=== PATIENT | male | born 1980 | race Caucasian/White ===

== ENCOUNTER 2020-06-16 14:58 | Outpatient (RCR) | payer MEDICARE, OTHER, MEDICAID, SELFPAY ==
--- NOTE | 2020-06-16 16:20 | PTOPEVAL ---
Thank you for referring Holland Vale to [facility].? The patient is scheduled to be seen for therapy? __3__x/week for 12 visits. Please review, sign, date and return this plan of care DANIEL. I agree with and certify that the following plan of care is medically necessary. Referring Physician Date Admitting Provider: Attending Provider: Errol Clark MD Referring Provider: *PT Outpatient Evaluation Start: 06/16/20 15:07 Freq: Status: Active Protocol: Document 06/16/20 15:07 TERESA (Rec: 06/16/20 16:20 TERESA [email or web address]) Therapy Assessment Status Assessment Status Assessment Status Evaluation Evaluation Information Problem Diagnosis weakness, MS Onset 09/26/12 Subjective Information Pt. reports that he was Query Text:As Reported By Patient/ diagnosed with primary Family progressive MS in 2018. He states that he has recently noticed a more sudden decline in regards to endurance and leg strength. He states that he also noted increase in general back and l.e. pain. He states that he has noticed that he has become more easily distracted. He states that he has hx of falls, but has not done so in a long time. He reports that fatigue and balance issues have led to him becoming more sedentary. He reports that the longest he is able to stand is 15 minutes. He reports that he would like to pariticpate in therapy in order to improve strength and endurance. Prior Level of Function Activity Level (Last 3 Months) Occupation disability Hand Dominance Right Activity of Daily Living Ability Independent Indoor/Home Mobility Independent Community Mobility Independent Stairs Ability Independent Functional Cognition (Planning, Shopping Independent , Taking Medications) Cooking Yes Cleaning Yes Laundry Yes Shopping Yes Driving No Pain Assessment Timing of Pain Assessment Timing of Pain Assessment Pre-Treatment Pain Scale Pain Scale Used Numeric (1 - 10) Self Report Pain Assessment
--- NOTE | 2020-07-09 14:26 | PCPTNOTE ---
07/09/20-pt cancelled appointment today, stating he was just too sore to move. -
== END 2020-07-17 10:40 | disposition home or self-care (01) ==
LOC: CHSPT 14:58
PROVIDERS: PCP Family Medicine; Visit Provider Family Medicine
DX: R26.9 Unspecified abnormalities of gait and mobility (principal)
CPT/HCPCS: 97110; 97112; 97161

== ENCOUNTER 2020-09-01 12:01 | Outpatient (CLI) | payer MEDICARE, SELFPAY ==
[2020-09-01 12:56] LABS: SARS-CoV-2 Ag Negative (Negative)
== END 2020-09-01 12:02 | disposition home or self-care (01) ==
LOC: CHSLAB 12:06
PROVIDERS: PCP Family Medicine; Visit Provider Family Medicine
DX: Z20.828 Contact with and (suspected) exposure to other viral communicable diseases (principal)
CPT/HCPCS: 87426

== ENCOUNTER 2020-10-01 12:27 | Outpatient (CLI) | payer MEDICARE, MEDICAID, SELFPAY ==
[2020-10-02 19:23] LABS: SARS-CoV-2 RNA PCR Negative
== END 2020-10-01 12:28 | disposition home or self-care (01) ==
LOC: CHSLAB 12:31
PROVIDERS: PCP Family Medicine; Visit Provider Family Medicine
DX: Z01.818 Encounter for other preprocedural examination (principal); Z20.822 Contact with and (suspected) exposure to COVID-19
CPT/HCPCS: C9803; U0003

== ENCOUNTER 2020-10-03 13:07 | Outpatient (CLI) | payer MEDICARE, MEDICAID, SELFPAY ==
[2020-10-04 19:31] LABS: SARS-CoV-2 RNA PCR Negative
== END 2020-10-03 13:08 | disposition home or self-care (01) ==
LOC: CHSLAB 13:12
PROVIDERS: PCP Family Medicine; Visit Provider Family Medicine
DX: Z01.818 Encounter for other preprocedural examination (principal); Z20.822 Contact with and (suspected) exposure to COVID-19
CPT/HCPCS: C9803; U0003

== ENCOUNTER 2021-05-21 11:24 | Outpatient (CLI) | payer MEDICARE, SELFPAY ==
[2021-05-21 12:27] LABS: SARS-CoV-2 Ag Negative (Negative)
== END 2021-05-21 11:25 | disposition home or self-care (01) ==
LOC: CHSLAB 11:26
PROVIDERS: PCP Family Medicine; Visit Provider Family Medicine
DX: R53.83 Other fatigue (principal); Z20.822 Contact with and (suspected) exposure to COVID-19
CPT/HCPCS: 87426; C9803

== ENCOUNTER 2022-04-12 10:37 | Emergency (ER) | payer OTHER, SELFPAY ==
--- NOTE | ~2022-04-12 | CT_ITS ---
EXAMINATION: CT diagnostic chest wo con DATE: 04/12/2022 12:58 INDICATION: Shortness of breath, chest heaviness today. History of tumor removed from chest in 1998; 06/20/2017 [facility] order sheet for 2 view chest radiograph indicates lipoma remove d from the right chest wall under the nipple. TECHNIQUE: Computed tomography (CT) of the chest was performed without intravenous contrast. Automate d exposure control and iterative reconstruction technique were employed. Exam dose: 636.11 mGy-cm to alexa exam DLP. COMPARISON: 06/20/2017 two-view chest FINDINGS: The lungs are clear of infiltrate or consolidation or mass lesion. Normal heart size. Some left anterior descending coronary artery calcification is noted. No pericardi al or pleural effusion. No thoracic aortic aneurysm. No hilar or mediastinal mass lesion or lymphadenopathy is detected. There is focal scarring/retraction and at the inferior lateral aspect of the right nipple, likely rel ated to the history of prior surgical resection of a lipoma. No abnormal soft tissue mass density is noted in this region. No chest wall mass lesion is evident. Very small sliding hiatal hernia. 11.7 x 8 mm left adrenal mass, likely a small adrenal adenoma. 1.4 cm left upper quadrant splenule. Normal splenic size. Included skeletal structures are unremarkable. No suspicious osteolytic or osteosclerotic lesions. IMPRESSION: Small scar or retraction of the right anterior chest wall inferolateral to the nipple, a n area of previously resected lipoma by clinical history Probable small left adrenal adenoma No pulmonary mass or infiltrate or hilar or mediastinal adenopathy Left anterior descending coronary artery calcification; normal heart size Reviewed, dictated and finalized at [facility]. Reviewed, dictated and finalized at [facility]. IMPRESSION: Small scar or retraction of the right anterior chest wall inferola teral to the nipple, an area of previously resected lipoma by clinical history Probable small left adrenal adenoma No pulmonary mass or infiltrate or hilar or mediastinal adenopathy Left anterior descending coronary artery calcification; normal heart size
[2022-04-12 10:37] VITALS: BP 158/105; PULSE 91; RESP 20; TEMP 37.1; O2SAT 99
--- NOTE | 2022-04-12 10:49 | ECG_ITS ---
Rate 77 MA 179 QRSd 97 QT 355 QTc 403 --[place]-- P 46 QRS 65 T 57 SINUS RHYTHM NORMAL ECG Electronically Signed On 04-12-2022 18:57:02 CDT by Tunde MICHELLE
[2022-04-12 11:19] LABS: Basophils Absolute Auto 0.08 K/mm3 (0.00-0.10); Basophils Percent Auto 0.9 % (0.0-1.0); Eosinophils Absolute Auto 0.26 K/mm3 (0.02-0.50); Eosinophils Percent Auto 2.8 % (1.0-6.0); Hematocrit 42.3 % (40.0-54.0); Hemoglobin 14.4 g/dL (14.0-18.0); Immature Granulocyte Absolute 0.06 K/mm3 (0.00-0.00); Immature Granulocyte Percent A 0.7 % (0.0-0.0); Lymphocytes Absolute Auto 2.43 K/mm3 (1.10-4.50); Lymphocytes Percent Auto 26.4 % (18.0-42.0); Mean Corpuscular Hemoglobin 28.9 pg (27.0-31.0); Mean Corpuscular Volume 84.9 fL (78.0-102.0); Mean Platelet Volume 9.8 fl (8.7-11.0); Monocytes Absolute Auto 0.83 K/mm3 (0.10-0.90); Neutrophils Absolute Auto 5.5 K/mm3 (1.7-7.2); Neutrophils Percent Auto 60.2 % (50.0-70.0); Platelet Count Result 308 K/mm3 (150-420); Red Blood Count 4.98 M/mm3 (4.70-6.10); Red Cell Distribution Width 12.6 % (11.6-14.4); White Blood Count 9.2 K/mm3 (4.8-10.8)
[2022-04-12] MEDS: ACETAMINOPHEN 325 MG TABLET 650 MG PO (11:30)
[2022-04-12] MEDS: ASPIRIN 325 MG ENTERIC TABLET PO (11:30)
[2022-04-12] MEDS: SODIUM CHLORIDE 0.9% IV 500 ML 999 ML IV CONT (11:32)
[2022-04-12] MEDS: NITROGLYCERIN SL 0.4 MG TABLET SUBLINGUAL (11:34)
[2022-04-12 11:37] VITALS: BP 151/111; PULSE 86; RESP 20; TEMP 37.1; O2SAT 99
[2022-04-12 11:38] LABS: Alanine Aminotransferase 44 U/L (16-63); Albumin Level 3.6 g/dL (3.4-5.0); Alkaline Phosphatase 146 U/L (46-116); Anion Gap 10 mmol/L (8-16); Aspartate Amino Transferase 16 U/L (15-37); Bilirubin,Total 0.2 mg/dL (0.00-1.00); Blood Urea Nitrogen 10 mg/dL (7-18); Calcium 8.8 mg/dL (8.5-10.1); Carbon Dioxide 23 mmol/L (21-32); Chloride 105 mmol/L (98-108); Estimated CRCL calculation 108 ml/min; Estimated Glomerular Filt Rate > 60; Ethanol < 3 mg/dL (0-6); Glucose 140 mg/dL (70-99); Lactic Acid Reflex 2.3 mmol/L (0.4-2.0); Osmolality Calculated 287 mOsm/kg (285-295); Potassium 3.6 mmol/L (3.5-5.1); Sodium 138 mmol/L (136-145); Total Protein 7.4 g/dL (6.4-8.2); Troponin I 46.7 ng/L (0.00-60.4)
[2022-04-12 12:01] LABS: Influenza A QL RT-PCR Negative (Negative); Influenza B QL RT-PCR Negative (Negative); SARS-CoV-2 RNA PCR Negative (Negative)
[2022-04-12] MEDS: SODIUM CHLORIDE 0.9% IV 1,000 ML 999 ML IV CONT (12:10)
[2022-04-12] MEDS: cloNIDine HCL 0.2 MG TABLET PO (12:11)
--- NOTE | 2022-04-12 12:28 | ED.CHESTPAIN ---
HPI - Chest Pain General Chief Complaint: Chest Pain Stated Complaint: chest pains,sob Time Seen by Provider: 04/12/22 10:41 Source: patient and RN notes reviewed Mode of arrival: wheelchair Limitations: no limitations History of Present Illness complaint: chest pain Onset (ago): hour(s) (2) Timing of current episode: constant Prior episodes: No Onset: during rest Pain location: substernal Pain radiation: back Pain scale (0-10): 3 Quality: heaviness and dull Relieving factors: nothing Exacerbating factors: nothing Associated symptoms: nausea Treatment prior to arrival: none Risk Factors Coronary artery disease risk factors: family history of CAD before age 50 Related Data Home Medications Medication Instructions Recorded Confirmed amantadine HCl 100 mg capsule 100 mg PO DAILY 04/12/22 04/12/22 clonazepam 0.5 mg tablet 0.5 mg PO DIRECTED 04/12/22 04/12/22 escitalopram oxalate 20 mg tablet 20 mg PO DAILY 04/12/22 04/12/22 gabapentin 300 mg capsule 300 mg PO TID 04/12/22 04/12/22 gabapentin 600 mg tablet 600 mg PO TID 04/12/22 04/12/22 tizanidine 2 mg tablet 2 mg PO DAILY 04/12/22 04/12/22 Allergies Allergy/AdvReac Type Severity Reaction Status Date / Time No Known Allergies Allergy Verified 04/12/22 11:00 Review of Systems Review of Systems: All systems reviewed & are unremarkable except as noted in HPI and below Constitutional: Constitutional: Reports no additional constitutional complaints Eyes: Eyes: Reports no additional eye complaints ENT: Reports system reviewed and no additional complaints, except as documented Cardiovascular: Cardiovascular: Reports chest pain Respiratory: Respiratory: Reports no additional respiratory complaints Gastrointestinal: Gastrointestinal: Reports no additional gastrointestinal complaints Musculoskeletal: Musculoskeletal: Reports no additional musculoskeletal complaints Integumentary/Breasts: Skin/Breast: Reports system reviewed and no additional complaints, except as docu Neurologic: Reports system reviewed and no additional complaints, except as documented Psychiatric: Psychiatric: Reports no additional psychiatric complaints Endocrine: Endocrine: Reports no additional endocrine complaints Hematologic/Lymphatic: Hematologic/Lymphatic: Reports no additional hematologic/lymphatic complaints Allergic/Immunologic: Allergic/Immunologic: Reports no additional allergic/immunologic complaints PMFSH Past Medical History Medical History Chest pain at rest Multiple sclerosis Exam Const: General: healthy appearing and no acute distress Nutritional Appearance: well nourished Orientation/consciousness: patient oriented x3 Limitations: no limitations HENMT: Head: normal to inspection Ears: external ears normal, TM's normal bilaterally and EAC's normal General nose exam: Normal external nose present and Normal nares present Face and sinus: normal facial exam and sinuses nontender Mouth: Yes Normal oral and palatal mucosa present and Yes moist mucous membranes Teeth and gingiva: dentition normal Throat: posterior oropharynx normal Eyes: Conjunctivae: conjunctivae normal Pupils: Equal, round and reactive pupils present EOM: EOMs intact bilaterally Neck: Neck: normal visual inspection, no lymphadenopathy and no meningeal signs Chest: Chest palpation & inspection: normal inspection of the chest and tenderness (minimal of mid to upper sternum) Resp: Effort & Inspection: normal respiratory effort Auscultation: clear to auscultation bilaterally Cardio: Rate: regular rate Rhythm: regular rhythm GI: GI Palp: Yes Soft to palpation and No Tenderness to palpation present (GI) Auscultation: normal bowel sounds : General: Yes bladder normal to palpation and Yes no CVA tenderness Back/Spine/Pelvis: Back: no CVA tenderness Skin: General skin exam: normal color Rashes: no rashes Wounds: no wounds Neuro
[2022-04-12 12:39] VITALS: BP 134/84; PULSE 81; RESP 20; TEMP 37.1; O2SAT 94
[2022-04-12 12:47] VITALS: BP 165/92; PULSE 83; RESP 20; TEMP 36.9; O2SAT 98
[2022-04-12 12:59] LABS: Amphetamine Screen Urine Positive (Negative); Barbiturate Screen Urine Negative (Negative); Benzodiazepines Screen Urine Negative (Negative); Cannabinoid Screen Urine Positive (Negative); Cocaine Screen Urine Negative (Negative); Methadone Screen Urine Negative (Negative); Opiate Screen Urine Negative (Negative); Phencyclidine Screen Urine Negative (Negative)
[2022-04-12] MEDS: KETOROLAC (*BKC) 60 MG/2 ML VIAL IM (13:25)
--- NOTE | 2022-04-12 13:31 | PC.NURSE ---
pt resting per cot. denies chest pain at this time. awaiting ct scan report.
[2022-04-12 13:38] LABS: Troponin I 397.5 ng/L (0.00-60.4)
--- NOTE | 2022-04-12 13:49 | ECG_ITS ---
Rate 83 UT 174 QRSd 97 QT 366 QTc 431 --[place]-- P 53 QRS 78 T [address] ELEVATION IN ANTEROLAT/INF LEADS- PROBABLY EARLY REPOLARIZATION BASELINE WANDER- I, II, III, AVR BORDERLINE ECG Electronically Signed On 04-13-2022 10:15:41 CDT by Tunde Jefferson D.O. COMPARED TO ECG 04/12/2022 10:53:00 ST (T WAVE) DEVIATION NOW PRESENT MTDD
[2022-04-12 14:15] LABS: Reflex Lactic Acid Yes or No Add Lactic
[2022-04-12 14:16] LABS: NT Pro B Type Natriuretic Pept 20 pg/mL (0-125)
[2022-04-12] MEDS: ENOXAPARIN 100 MG/ML SYRINGE (14:31)
[2022-04-12 14:59] LABS: Lactic Acid 1.7 mmol/L (0.4-2.0)
[2022-04-12 15:23] VITALS: BP 137/86; PULSE 79; RESP 20; TEMP 37.2; O2SAT 99
== END 2022-04-12 16:06 | disposition short-term general hospital (02) ==
PROVIDERS: Emergency Provider Emergency Medicine; PCP Family Medicine
DX: I21.4 Non-ST elevation (NSTEMI) myocardial infarction (principal); R07.9 Chest pain, unspecified; Z20.822 Contact with and (suspected) exposure to COVID-19; R06.02 Shortness of breath; Z79.899 Other long term (current) drug therapy
CPT/HCPCS: 36415; 71250; 80053; 80307; 83605; 83880; 84484; 85025; 87081; 87502; 87880; 93005; 96360; 96361; 96372; 99285; A9270; C9803; J1650; J1885; J7030; J7040; U0003; U0005

== ENCOUNTER 2022-04-12 17:19 | Inpatient (IN) | payer OTHER, SELFPAY ==
[2022-04-12] VITALS (8 sets, daily range): BP systolic 134–160; BP diastolic 80–109; PULSE 84–104; RESP 13–21; TEMP 36.5–36.9; O2SAT 97–100; BMI 29.2
--- NOTE | 2022-04-12 16:34 | PC.NURSE ---
This patient, Holland Vale, was admitted to IMU Room 232-01. Patient/family oriented to hospital policies and general routines including ID bracelet, bed and alarms, visiting hours, pain management, procedures, bathroom and other care routines, personal items, smoking policy, room service/diet, and visiting hours. Information on how to activate the Rapid Response Team has been discussed. Patient/Family are encouraged to report perceived risks to care and to ask questions if they do not understand what they are told or what they should do.
--- NOTE | 2022-04-12 17:22 | ECG_ITS ---
Rate 78 SC 173 QRSd 96 QT 359 QTc 409 --[place]-- P 43 QRS 66 T [address] ELEVATION IN ANTEROLAT/INF LEADS, PROBABLY EARLY REPOLARIZATION BORDERLINE ECG Electronically Signed On 04-13-2022 7:46:09 CDT by Tunde MICHELLE
--- NOTE | 2022-04-12 18:30 | PM.IMHP ---
H&P: HPI History of Present Illness Date/Time: 04/12/22 18:30 Chief Complaint: Chest pain, elevated troponin. Narrative: This is a 41-year-old male with multiple sclerosis and anxiety who is being directly admitted to the IMU from the ED at [facility] for evaluation of chest pain and elevated troponin. He presented to their facility this morning from home for evaluation of chest pain that began around 08:30. He did not sleep well last night so he watched and educational video regarding stem cell transplants for patients with multiple sclerosis. He was hopeful that these advances in medicine could help him however he was disappointed with what he learned in the videos and he admits that he got upset and ?ate my feelings. At around 08:30 he developed a heaviness sensation in the substernal chest like a bowling ball is sitting there. The pain seemed to radiate somewhat through to the back and he was also feeling a little short of breath and lightheaded with hot flashes and sweats. EKG done on arrival to the ED showed subtle ST elevation which seemed to be more consistent with early repolarization although his baseline troponin was marginally elevated. He was given a therapeutic dose of Lovenox as well as aspirin 324 mg p.o. and transfer was initiated to [place] for further evaluation and consultation with the splicer apprentice. At the time of my evaluation he continues to have mild chest heaviness rated 2/10. A repeat EKG did show subtle ST elevation in the inferior leads at which time the flight communications officer was consulted and he is now awaiting urgent cardiac catheterization. I went to re-evaluate the patient after his repeat EKG at which time he admitted to smoking methamphetamine within the last 24 hours. This was apparently the 1st time he had done meth and he said he was trying it to see if it would help his unrelenting fatigue. He has no known history of coronary artery disease but has a strong family history with his mother having her 1st RI at age 42 and a bypass at age 51. Review of Systems Review of Systems: Twelve systems were reviewed. He has good days and bad days regarding his multiple sclerosis. He seems to be quite fatigued frequently. He has not had any recent falls. No syncope or presyncope. No recent cold or flu symptoms. No nausea, vomiting, or diarrhea. He denies cough. No palpitations, pleuritic pain, orthopnea, paroxysmal nocturnal dyspnea, or edema. No history of venous thromboembolism. Except as documented, all other systems were reviewed and are negative. [facility] Past Medical History Medical History (Updated 04/13/22 @ 00:00 by Raymon Harry) Anxiety Multiple sclerosis Nicotine use Surgical History Surgical History Status post excision of lipoma Family History Family History (Updated 04/12/22 @ 21:31 by Barb Lama PA-C) Mother Acute myocardial infarction, Onset Age: 42 Stents at age 42, bypass at age 52. Coronary artery disease Multiple sclerosis Social History Social History Social History: Surrogate medical decision maker: Rose Mary Vale, mother. Code status: Full code. Smoking packs per day: 0.25 Smoking cigarettes per day: 5.0 Smoking status: Current every day smoker Alcohol intake: never Substance use: current Substance use type: marijuana Living arrangements: with family Spiritual care concerns: No Meds Home Medications and Allergies Home Medications Medication Instructions Recorded Confirmed Type clonazepam 0.5 mg tablet 0.5 mg PO DIRECTED 04/12/22 04/12/22 History escitalopram oxalate 20 mg tablet 20 mg PO DAILY 04/12/22 04/12/22 History gabapentin 300 mg capsule 300 mg PO TID 04/12/22 04/12/22 History gabapentin 600 mg tablet 600 mg PO TID 04/12/22 04/12/22 History tizanidine 2 mg tablet 2 mg PO DAILY 04/12/22 04/12/22 Sc
[2022-04-12] MEDS: SODIUM CHLORIDE 0.9% IV 1,000 ML 30 ML IV CONT (20:11)
--- NOTE | 2022-04-12 20:32 | PC.NURSE ---
Addendum entered by Starla Valdez RN 04/12/22 20:45: The decision concerning if patient is a STEMI and a STEMI needs to be activated. Dr. Dowling called back and stated to activate the STEMI and Dr. Cosme was on his way in. STEMI activated per hospital protocol. Original Note: 1930 Patient c/o 5/10 chest pressure. States it feels like a bowling ball was dropped on his chest and radiating to his back. EKG obtained and shown to EZEKIEL Melton. She stated to call cardiology and make them aware of EKG changes. Spoke with Dr. Dowling and made him aware of patient and current EKG. EKGs sent to Dr. Dowling. Dr. Dowling getting in touch with Dr. Cosme and will let me know what
--- NOTE | 2022-04-12 20:38 | PC.NURSE ---
Patient to prosthetics lab technician. Report given to VICTOR MANUEL Del Cid.
--- NOTE | 2022-04-12 20:39 | PM.CNCAR ---
Assessment and Plan Assessment and plan (1) Elevated troponin: Code(s): R77.8 - Other specified abnormalities of plasma proteins Status: Acute (2) Chest pain: Code(s): R07.9 - Chest pain, unspecified Status: Acute (3) Nicotine use: Code(s): Z72.0 - Tobacco use Status: Acute Additional Plan - chest pain elevated troponins, possible ST elevations inferior leads - amphetamine use, tobacco use, marijuana. - multiple sclerosis - anxiety Risks and benefits of cardiac catheterization discussed with the patient he agrees to proceed. Although he has used methamphetamine but we cannot exclude coronary artery disease given his smoking history. And given his family history History of Present Illness History of Present Illness Consult date/time: Date of ahofknu28/18/22 20:39 Requesting physician: Barb Lama PA-C Consult reason: chest pain and Other ( possible STEMI) Reason For Visit: Chest Pain/ Elevated Troponin Narrative: this is 41-year-old patient with past history of tobacco use, multiple sclerosis, anxiety who presents here to the hospital chest pain that started 830 this morning. He was transferred directly from the emergency room of [facility] as a direct admit to the IMU. this evening patient was having more chest pain and review the EKG which normalized and reviewed myself shows ST elevations in the inferior leads. patient states that he was feeling very anxious and smoked meth for the 1st time. Initial troponin at [facility] shows troponin 46 the 397. Troponin here was 2.33 urine drug screen positive for cannabinoid and amphetamines. COVID negative. CT of the chest shows calcification of the LAD Review of Systems Constitutional: Constitutional: Denies chills, Denies fever(s) and Denies poor appetite Eyes: Eyes: Denies eye discharge, Denies loss of vision, Denies eye pain and Denies photophobia ENT: Denies dizziness, Denies epistaxis, Denies nasal congestion and Denies sore throat Cardiovascular: Cardiovascular: Reports chest pain, Denies syncope, Denies pedal edema, Denies leg edema, Denies palpitations, Denies dyspnea, Denies dyspnea on exertion and Denies orthopnea Respiratory: Respiratory: Denies cough, Denies dyspnea, Denies dyspnea on exertion and Denies wheezing Gastrointestinal: Gastrointestinal: Denies abdominal pain, Denies diarrhea, Denies nausea and Denies vomiting Genitourinary: Genitourinary: Denies hematuria, Denies genital lesions and Denies dysuria Musculoskeletal: Musculoskeletal: Denies arthralgias, Denies joint swelling and Denies numbness Integumentary/Breasts: Skin/Breast: Denies pruritus and Denies rash Neurologic: Denies dizziness and Denies syncope Psychiatric: Psychiatric: Reports anxiety and Denies depression Endocrine: Endocrine: Denies cold intolerance, Denies heat intolerance and Denies palpitations Hematologic/Lymphatic: Hematologic/Lymphatic: Denies easy bleeding and Denies easy bruising Allergic/Immunologic: Allergic/Immunologic: Denies urticaria and Denies wheezing PENDING SALE TO [facility] Past Medical History Medical History (Updated 04/12/22 @ 21:44 by Barb Lama PA-C) Anxiety Multiple sclerosis Nicotine use Surgical History Surgical History Status post excision of lipoma Family History Family History (Updated 04/12/22 @ 21:31 by Barb Lama PA-C) Mother Acute myocardial infarction, Onset Age: 42 Stents at age 42, bypass at age 52. Coronary artery disease Multiple sclerosis Social History Social History Social History: Surrogate medical decision maker: Rose Mary Vale, mother. Code status: Full code. Smoking packs per day: 0.25 Smoking cigarettes per day: 5.0 Smoking status: Current every day smoker Alcohol intake: never Substance use: current Substance use type: milly
[2022-04-12 20:50] LABS: Basophils Absolute Auto 0.1 K/mm3 (0.0-0.1); Basophils Percent Auto 0.4 % (0.2-1.2); Eosinophils Absolute Auto 0.2 K/mm3 (0-0.3); Eosinophils Percent Auto 1.6 % (0-4.4); Hematocrit 40.7 % (42.0-52.0); Hemoglobin 13.8 g/dL (14.0-18.0); Immature Granulocyte Absolute 0.06 K/mm3 (0.00-0.031); Immature Granulocyte Percent A 0.5 % (0-0.5); Mean Corpuscular HGB Conc 33.9 g/dl (32-36); Mean Corpuscular Hemoglobin 28.9 pg (26-34); Mean Corpuscular Volume 85.1 fl (80-100); Mean Platelet Volume 10.1 fl (7.4-10.4); Monocytes Absolute Auto 0.9 K/mm3 (0.1-0.6); Monocytes Percent Auto 7.3 % (2.6-8.5); Neutrophils Absolute Auto 8.6 K/mm3 (1.3-6.7); Neutrophils Percent Auto 69.2 % (45.5-73.1); Platelet Count Result 268 k/mm3 (150-375); Red Blood Count 4.78 M/mm3 (4.6-6.20); Red Cell Distribution Width 12.9 % (11.5-14.5); White Blood Count 12.4 K/mm3 (4.5-10.0)
--- NOTE | 2022-04-12 20:56 | WPDCARDPROC ---
Cardiac Cath Procedure Note Date of procedure:: 04/12/22 Performing physician:: Nalini Cosme MD Indication:: possible inferior ST-elevation Brief clinical history:: 41-year-old patient with history of anxiety, multiple sclerosis and tobacco use who presents to hospital with chest pain that started at 8:30 a.m. this. Troponins went up and therefore transferred from [place] [facility]. he had more chest pain this afternoon and EKG shows subtle ST elevation in inferior leads and troponin 2.3. Urine drug screen positive for methamphetamine. also marijuana. Procedure Procedure performed:: 1-Moderate sedation that started at 849p.m.and ended at 10:28 p.m. patient 99 minutes using 8mg of Versed and 200mg fentanyl. The registered nurse was viktoria marvin. 2-Selective left and right coronary angiogram. 3-Left heart catheterization with measurement of LVEDP and measurement of gradient across aortic valve. 4- LV angiogram. 5- drug-eluting stent Xience 3.25x23 covering proximal and midportion of ramus intermedius. 6- deployment of a drug-eluting stent Xience 2.25 x 28 covering 2nd branch of OM1. 7-Right common femoral arterial angiogram. 8-Deployment of 6 Singaporean Angio-Seal. Sedation/Medication given:: Moderate sedation. Access site:: Right common femoral artery. Estimated blood loss:: 10cc Procedure note:: After informed consent patient was brought in to crime laboratory analyst with the was draped and prepped in usual manner. Moderate sedation was given and the right groin was infiltrated using 1% lidocaine. 6French sheath was obtained using micropuncture needle and the modified Seldinger technique. Selective left coronary angiogram was done using JL4 catheter with the tip of the catheter placed in the left main coronary artery. intracoronary nitroglycerin 300 mcg and then 200 mcg given with no change in the left coronary arterial angiogram findings. Selective right coronary angiogram was done using JR4 catheter with the tip of the catheter placed to the right coronary artery. After that 5 Singaporean pigtail catheter was advanced across the aortic valve into the left ventricle with measurement of LVEDP and measurement of gradient across aortic valve. LV angiogram was done as well. Right common femoral arterial angiogram was done. After that guide catheter CLS 3.5 was advanced engaging the left main. Coronary luge wire was advanced to distal ramus. Balloon angioplasty of proximal and midportion of the ramus was done using 3 x 15 balloon with initial inflation under nominal pressure for 25 seconds and then a 2nd inflation corresponding to size 3.25 mm for another 25 seconds and then deployed a drug-eluting stent Xience aleksandr point 3.25 x 23 under nominal pressure for 25 seconds. Post dilatation of the midportion of the stent done using 3.5x15 noncompliant balloon with under nominal pressure for 25 seconds. after that we took another luge wire and failed to wire the OM. Then we took a Sizing Machine Operator 150 and we wired the 2nd branch of the OM1. Balloon angioplasty done using 2 x 15 balloon under nominal pressure for 25 seconds. Then we inflated it at another time under 10 atmospheres for 25 seconds. Then we took Xience 3.25 x 33 was too long and we took a shorter Xience stent 2.25 x 28 deployed it in the 2nd branch of the covering the proximal part the mid part pressure for 25 seconds. Findings:: 1- left coronary artery is a large artery that divides into large LAD, large circumflex artery large ramus. Left main is free of disease 2- left anterior descending artery is a large artery that runs and wraps around the apex. minimal irregularities. Midportion size diagonal significant disease. 3- leftcircumflex artery is a large artery and. Midportion OM1 takes off. shortly after that the OM1 divides into 2 branches. The 1st branch is totally occluded with LI flow 0 in the midportion and artery appears to be tiny. The 2nd branch has high-grade stenosis 90% c
[2022-04-12 21:00] LABS: INR 1.1; Prothrombin Time 13.8 Seconds (11.1-14.7)
[2022-04-12 21:16] LABS: Anion Gap 4 mmol/L (8-16); Blood Urea Nitrogen 8 mg/dL (9-20); Calcium 8.6 mg/dL (8.4-10.2); Carbon Dioxide 26 mmol/L (22-30); Chloride 107 mmol/L (98-107); Cholesterol 186 mg/dL (0-200); Estimated CRCL calculation 138 ml/min; Estimated Glomerular Filt Rate > 60; Glucose 142 mg/dL (65-110); HDL Direct 27 mg/dL; Potassium 3.6 mmol/L (3.4-5.0); Sodium 137 mmol/L (137-145); Triglycerides 370 mg/dL (<150)
[2022-04-12 21:24] LABS: LDL Cholesterol Direct 95 mg/dL
[2022-04-12 22:10] LABS: Hemoglobin A1C 5.9 % (<5.7)
--- NOTE | 2022-04-12 22:47 | ECG_ITS ---
Measurements Intervals [place] Rate: 89 P: 53 VT: 167 QRS: 75 QRSD: 96 T: 62 QT: 348 QTc: 423 Interpretive Statements SINUS RHYTHM INCOMPLETE RIGHT BUNDLE BRANCH BLOCK SUBTLE ST ELEVATION IN INFERIOR LEADS- CONSIDER ACUTE INJURY BASELINE ARTIFACT- II, III, AVF ABNORMAL ECG Electronically Signed On 04-13-2022 10:18:26 CDT by Tunde Jefferson D.O.
[2022-04-12] MEDS: GABAPENTIN 300 MG CAPSULE 900 MG PO (23:31)
[2022-04-13] VITALS (20 sets, daily range): BP systolic 113–154; BP diastolic 72–104; PULSE 78–102; RESP 10–19; TEMP 36.9–37.1; O2SAT 96–99
[2022-04-13] MEDS: MORPHINE SULFATE (*CRX) 2 MG/ML INJ IV PUSH (00:42)
[2022-04-13] MEDS: SODIUM CHLORIDE 0.9% IV 1,000 ML 125 ML IV CONT (00:46)
[2022-04-13] MEDS: ACETAMINOPHEN 325 MG TABLET 650 MG PO ×2 (00:49→18:22)
--- NOTE | 2022-04-13 01:40 | PCRCNOTE ---
04/13/2022 @ 2130. Patient arrived to ICU from clinical lab scientist. ApneaLink will be done tomorrow night.
--- NOTE | 2022-04-13 04:23 | PC.NURSE ---
This patient, Holland Vale, was received from bed laborer on 04/12/22 at 2300. Patient/family oriented to unit policies and routines
[2022-04-13 04:33] LABS: Hematocrit 40.3 % (42.0-52.0); Hemoglobin 13.9 g/dL (14.0-18.0); Mean Corpuscular HGB Conc 34.5 g/dl (32-36); Mean Corpuscular Hemoglobin 29.2 pg (26-34); Mean Corpuscular Volume 84.7 fl (80-100); Mean Platelet Volume 9.8 fl (7.4-10.4); Platelet Count Result 259 k/mm3 (150-375); Red Blood Count 4.76 M/mm3 (4.6-6.20)
[2022-04-13 04:53] LABS: LDL Cholesterol Direct 89 mg/dL
[2022-04-13 05:01] LABS: Anion Gap 4 mmol/L (8-16); Blood Urea Nitrogen 10 mg/dL (9-20); Calcium 8.6 mg/dL (8.4-10.2); Carbon Dioxide 25 mmol/L (22-30); Chloride 110 mmol/L (98-107); Cholesterol 214 mg/dL (0-200); Estimated CRCL calculation 122 ml/min; Estimated Glomerular Filt Rate > 60; Glucose 118 mg/dL (65-110); Magnesium 1.9 mg/dL (1.6-2.3); Potassium 3.8 mmol/L (3.4-5.0); Sodium 139 mmol/L (137-145)
[2022-04-13 05:13] LABS: Triglycerides 636 mg/dL (<150)
--- NOTE | 2022-04-13 07:00 | ECG_ITS ---
Measurements Intervals [place] Rate: 81 P: 46 GA: 157 QRS: 64 QRSD: 98 T: 65 QT: 362 QTc: 422 Interpretive Statements SINUS RHYTHM WITH SINUS ARRHYTHMIA EARLY PRECORDIAL R/S TRANSITION BORDERLINE ECG Electronically Signed On 04-13-2022 10:18:49 CDT by Tunde Jefferson D.O.
--- NOTE | 2022-04-13 08:09 | WPDCNINT ---
Assessment and Plan Assessment and plan (1) ST elevation [place] (STEMI): Code(s): I21.3 - ST elevation (STEMI) myocardial infarction of unspecified site Status: Acute Assessment and Plan: Patient presented to an outside hospital on 04/12/2022 with complains of chest pain, urine drug screen was positive for cannabinoids and amphetamines, he stated that he smoked methamphetamine only once on the day of admission and that he does not use methamphetamine at all -status post PTCA/PCI with FRANCIE x1 to large ramus intermedius and FRANCIE x1 to 2nd branch of the OM 1. A small totally occluded 1st branch of OM 1 was not intervened upon as the tunnel kiln operator thought that the outcome of the patient will not change -continue aspirin, Brilinta - beta-teofilo and statin per Cardiology -day camp counselor patient on avoidance of methamphetamine and cannabinoids -aggressive risk factor modification for CAD -cardiology following the patient (2) Nicotine use: Code(s): Z72.0 - Tobacco use Status: Acute Assessment and Plan: Consult patient for cessation of smoking to which she is agreeable (3) Multiple sclerosis: Code(s): G35 - Multiple sclerosis Status: Acute Assessment and Plan: No active issues at this time Plan Beta-teofilo and statin per Cardiology Additional Plan Discussed with patient updated him with his labs and radiology reports. Code status: Full code Critical care time spent: 42 minutes This dictation may have been done utilizing a voice recognition system. Attempts have been made to correct errors. However, there may be uncorrected grammatical, spelling, and recognition errors present. Due to a high probability of clinically significant, life threatening deterioration, the patient required my highest level of preparedness to intervene emergently and I personally spent this critical care time directly and personally managing the patient. This critical care time included obtaining a history; examining the patient; pulse oximetry; ordering and review of studies; arranging urgent treatment with development of a management plan; evaluation of patient's response to treatment; frequent reassessment; and discussions with other providers. It was exclusive of separately billable procedures and treating other patients and teaching time. Please see Assessment and Plan section and the rest of the note for further information on patient assessment and treatment Palliative Care Nurse Consult Note Consult date: 04/13/22 Reason for consult: Chest pain, Inferior ST-elevation NE HPI: Holland Vale is a 41 year old male past medical history of tobacco use, family history of coronary artery disease, anxiety, multiple sclerosis presented to [facility] with complaints of chest pain and elevated troponins. He was transferred from the outside hospital ER to the intermediate Unit at [facility] on 04/12/2022. Later in the evening patient started to have more chest pain and the EKG showed ST-elevation in the inferior leads, troponins were 2.33, urine drug screen was positive cannabinoids and amphetamines, COVID was negative, CT of the chest showed calcifications of the LAD. Patient was taken to the cardiac catheterization lab, PTCA/PCI with FRANCIE x1 to large ramus intermedius and FRANCIE x1 to 2nd branch of the OM 1. A small totally occluded 1st branch of OM 1 was not intervened upon as the tunnel kiln operator thought that the outcome of the patient will not change. Patient was transferred to the ICU for further management. Patient seen and examined this morning in the ICU, is awake, alert, oriented x3, nonfocal. Denies any chest pain, shortness of breath, abdominal pain, nausea, vomiting. Vitals are stable, urine output has been adequate, patient is afebrile. Review of Systems Review of Systems: All systems reviewed & are unremarkable except as noted in HPI and below PMFSH Past Medical History Medical History (U
[2022-04-13] MEDS: ASPIRIN 81 MG ENTERIC TABLET PO (09:45)
[2022-04-13] MEDS: GABAPENTIN 300 MG CAPSULE 900 MG PO ×3 (09:45→17:42)
[2022-04-13] MEDS: TIZANIDINE HCL 2 MG TABLET PO (09:45)
[2022-04-13] MEDS: ESCITALOPRAM OXALATE 10 MG TABLET 20 MG PO (09:45)
[2022-04-13] MEDS: TICAGRELOR 90 MG TABLET PO ×2 (09:45→21:08)
--- NOTE | 2022-04-13 10:47 | PM.PNCARD ---
Progress Note: A&P Assessment and Plan (1) ST elevation [place] (STEMI): Code(s): I21.3 - ST elevation (STEMI) myocardial infarction of unspecified site Status: Acute Assessment and Plan: Status post small STEMI, probably due to occlusion of a branch of the OM 1 which was too small to stent and will be treated medically. Other lesions included tight stenosis of the ramus and OM 1 which were stented with drug-eluting stents. Peak troponin 7 Normal left ventricular function at the time of cardiac catheterization Feeling well; hypertensive and mildly tachycardic however. No CHF, other arrhythmias or CP. Extensive counseling regarding CAD, stents, treatment, follow-up etc. Reviewed importance of dual anti-platelet therapy; without compliance there is a risk of stent thrombosis, [place] and . Add LING-inhibitor and beta-teofilo. (2) Elevated blood pressure reading: Code(s): R03.0 - Elevated blood-pressure reading, without diagnosis of hypertension Status: Acute Assessment and Plan: Has been told his blood pressure is high off and on in the past Start LING-inhibitor and beta-teofilo (3) Nicotine use: Code(s): Z72.0 - Tobacco use Status: Acute Assessment and Plan: strongly encouraged smoking cessation. Use nicotine patches in the past. (4) Mixed hyperlipidemia: Code(s): E78.2 - Mixed hyperlipidemia Status: Acute Assessment and Plan: mixed hypertrophy lipidemia with severe hypertriglyceridemia. Patient admits to a poor diet. Reviewed heart healthy diet, recommended Mediterranean, vegetarian, vegan diet as the most heart healthy. start atorvastatin 40 mg daily. (5) Substance abuse: Code(s): F19.10 - Other psychoactive substance abuse, uncomplicated Status: Acute Assessment and Plan: Drug screen positive for both amphetamines and marijuana. Discussed extensively with patient; both have been associated with heart disease and strongly encouraged complete cessation. (6) Multiple sclerosis: Code(s): G35 - Multiple sclerosis Status: Acute Assessment and Plan: Chronic fatigue and disability secondary to multiple sclerosis. Subjective Date/time seen: 04/13/22 10:47 Review of Systems Review of Systems: follow-up for STEMI. Admitted 04/12/2022 from [place] with chest pain, inferior ST elevation in troponin 2.3. Taken emergently to the laborer prestressed concrete by Dr. Cosme, found to have tight lesions in the ramus and the larger branch of the OM1 which were stented with drug-eluting stents, and a totally occluded small/tiny branch of the OM 1 (Probably the culprit vessel) which was left to medical therapy due to its small size. Normal left ventricular function, EF 70%. History of multiple sclerosis. Drug screen positive for methamphetamine and marijuana. 04/13/2022: Patient feeling better today, can breathe better, no chest pain. Last use methamphetamine the day prior to admission. States he was feeling exhausted and worn out from his multiple sclerosis , moving from bed to chair and back, and very discouraged. Hopeful that he will change his habits and lead a healthier life. Has been working on smoking cessation off and on. EKG today: NSR rate 81, sinus arrhythmia, early precordial R/ S transition which has been noted intermittently on the previous EKGs, Lead placement verses right ventricular dysfxn, personally reviewed. Constitutional: Constitutional: Reports fatigue and Reports lethargy Cardiovascular: Cardiovascular: Denies chest pain, Denies pedal edema and Denies leg edema Respiratory: Respiratory: Denies dyspnea and Denies dyspnea on exertion Gastrointestinal: Gastrointestinal: Denies abdominal pain Musculoskeletal: Musculoskeletal: Reports stiffness (muscle weakness) Integumentary/Breasts: Skin/B
[2022-04-13] MEDS: ATORVASTATIN 40 MG TABLET PO (12:58)
[2022-04-13] MEDS: lisinopriL 10 MG TABLET PO (12:58)
--- NOTE | 2022-04-13 13:51 | PM.IMPN ---
Progress Note: A&P Assessment and Plan (1) ST elevation [place] (STEMI): Code(s): I21.3 - ST elevation (STEMI) myocardial infarction of unspecified site Status: Acute Assessment and Plan: Patient presented to an outside hospital on 04/12/2022 with complains of chest pain, urine drug screen was positive for cannabinoids and amphetamines, he stated that he smoked methamphetamine only once on the day of admission and that he does not use methamphetamine at all -status post PTCA/PCI with FRANCIE x1 to large ramus intermedius and FRANCIE x1 to 2nd branch of the OM 1. A small totally occluded 1st branch of OM 1 was not intervened upon as the dry cleaning checker thought that the outcome of the patient will not change -continue aspirin, Brilinta - beta-teofilo and statin per Cardiology -professor of counseling patient on avoidance of methamphetamine and cannabinoids -aggressive risk factor modification for CAD -cardiology following the patient -likely discharge tomorrow (2) Nicotine use: Code(s): Z72.0 - Tobacco use Status: Acute Assessment and Plan: Consult patient for cessation of smoking to which she is agreeable (3) Multiple sclerosis: Code(s): G35 - Multiple sclerosis Status: Acute Assessment and Plan: No active issues at this time (4) Chest pain: Code(s): R07.9 - Chest pain, unspecified Status: Inactive (5) Anxiety: Code(s): F41.9 - Anxiety disorder, unspecified Status: Acute (6) Elevated troponin: Code(s): R77.8 - Other specified abnormalities of plasma proteins Status: Acute (7) Elevated blood pressure reading: Code(s): R03.0 - Elevated blood-pressure reading, without diagnosis of hypertension Status: Acute (8) Hypersomnolence: Code(s): G47.10 - Hypersomnia, unspecified Status: Acute Plan Beta-teofilo and statin per Cardiology Additional Plan Discussed with patient updated him with his labs and radiology reports. Code status: Full code Critical care time spent: 42 minutes This dictation may have been done utilizing a voice recognition system. Attempts have been made to correct errors. However, there may be uncorrected grammatical, spelling, and recognition errors present. Due to a high probability of clinically significant, life threatening deterioration, the patient required my highest level of preparedness to intervene emergently and I personally spent this critical care time directly and personally managing the patient. This critical care time included obtaining a history; examining the patient; pulse oximetry; ordering and review of studies; arranging urgent treatment with development of a management plan; evaluation of patient's response to treatment; frequent reassessment; and discussions with other providers. It was exclusive of separately billable procedures and treating other patients and teaching time. Please see Assessment and Plan section and the rest of the note for further information on patient assessment and treatment Subjective Date/time seen: 04/13/22 13:51 Denies chest pain Exam Narrative: General: Well-built young individual in no acute distress HEENT: Pupils are equal and reactive, sclerae is clear Neck: Supple Respiratory: Clear to auscultation bilaterally Cardiac: S1-S2 normal, regular rate and rhythm Abdomen: Soft, nontender, nondistended, normoactive bowel sounds, obese Extremities: Right groin site without any evidence of hematoma or ecchymosis Neuro: Nonfocal Skin: Intact and dry Psych: Anxious Objective Data Vital Signs Vital Signs: Vital Signs - 24 hr 04/12/22 17:17 04/12/22 18:00 04/12/22 17:30 Temperature 97.9 F Pulse Rate 90 84 Respiratory Rate 16 Blood Pressure 134/80 Pulse Oximetry 100 Oxygen Delivery Room Air 04/12/22 19:34 04/12/22 19:30 04/12/22 20:00 Temperature 97.7 F Pulse Rate 90 104 H Respiratory Rate 18 Blood Pressure 160/92 H Pulse Oxim
[2022-04-13] MEDS: METOPROLOL TARTRATE 25 MG TABLET PO (21:08)
[2022-04-14] VITALS (10 sets, daily range): BP systolic 105–155; BP diastolic 63–79; PULSE 76–93; RESP 14–16; TEMP 36.8–36.9; O2SAT 95–99
[2022-04-14 03:54] LABS: Basophils Percent Auto 0.3 % (0.2-1.2); Eosinophils Absolute Auto 0.2 K/mm3 (0-0.3); Eosinophils Percent Auto 1.1 % (0-4.4); Hematocrit 40.6 % (42.0-52.0); Immature Granulocyte Absolute 0.11 K/mm3 (0.00-0.031); Immature Granulocyte Percent A 0.7 % (0-0.5); Lymphocytes Absolute Auto 2.08 K/mm3 (0.9-3.2); Mean Corpuscular HGB Conc 34.5 g/dl (32-36); Mean Corpuscular Volume 84.2 fl (80-100); Monocytes Absolute Auto 1.7 K/mm3 (0.1-0.6); Monocytes Percent Auto 11.4 % (2.6-8.5); Neutrophils Absolute Auto 10.8 K/mm3 (1.3-6.7); Neutrophils Percent Auto 72.5 % (45.5-73.1); Platelet Count Result 240 k/mm3 (150-375); Red Blood Count 4.82 M/mm3 (4.6-6.20); Red Cell Distribution Width 13.1 % (11.5-14.5); White Blood Count 14.9 K/mm3 (4.5-10.0)
[2022-04-14 04:04] LABS: Anion Gap 9 mmol/L (8-16); Blood Urea Nitrogen 9 mg/dL (9-20); Calcium 8.9 mg/dL (8.4-10.2); Carbon Dioxide 23 mmol/L (22-30); Chloride 108 mmol/L (98-107); Estimated CRCL calculation 109 ml/min; Estimated Glomerular Filt Rate > 60; Glucose 126 mg/dL (65-110); Magnesium 2.1 mg/dL (1.6-2.3); Phosphorus 4.6 mg/dL (2.5-4.5); Potassium 3.7 mmol/L (3.4-5.0); Sodium 140 mmol/L (137-145)
[2022-04-14] MEDS: ACETAMINOPHEN 325 MG TABLET 650 MG PO (07:42)
[2022-04-14] MEDS: TICAGRELOR 90 MG TABLET PO (07:43)
[2022-04-14] MEDS: ASPIRIN 81 MG ENTERIC TABLET PO (07:44)
[2022-04-14] MEDS: GABAPENTIN 300 MG CAPSULE 900 MG PO (07:44)
[2022-04-14] MEDS: ESCITALOPRAM OXALATE 10 MG TABLET 20 MG PO (07:45)
[2022-04-14] MEDS: METOPROLOL TARTRATE 25 MG TABLET PO (07:45)
[2022-04-14] MEDS: lisinopriL 10 MG TABLET PO (07:45)
[2022-04-14] MEDS: ATORVASTATIN 40 MG TABLET PO (07:47)
--- NOTE | 2022-04-14 08:28 | PM.PNCARD ---
Progress Note: A&P Assessment and Plan (1) ST elevation [place] (STEMI): Code(s): I21.3 - ST elevation (STEMI) myocardial infarction of unspecified site Status: Acute Assessment and Plan: Status post small STEMI, probably due to occlusion of a branch of the OM 1 which was too small to stent and will be treated medically. Other lesions included tight stenosis of the ramus and a larger branch of the OM 1 which were stented with drug-eluting stents. Peak troponin 7 Normal left ventricular function at the time of cardiac catheterization Feeling well. No CHF, other arrhythmias or CP. Extensive counseling regarding CAD, stents, treatment, follow-up etc. Reviewed importance of dual anti-platelet therapy; without compliance there is a risk of stent thrombosis, [place] and . Call if any trouble w/ obtaining/affording Brilinta. Will leave some samples. Cont LING-inhibitor, beta-teofilo, statin, ASA. OK for discharge today; has FU appt 04/22/2022. Hopefully will get pt into Cardiac Rehab. (2) Elevated blood pressure reading: Code(s): R03.0 - Elevated blood-pressure reading, without diagnosis of hypertension Status: Acute Assessment and Plan: Has been told his blood pressure is high off and on in the past Started LING-inhibitor and beta-teofilo Much better today. (3) Nicotine use: Code(s): Z72.0 - Tobacco use Status: Acute Assessment and Plan: Strongly encouraged smoking cessation. Use nicotine patches in the past; will resume. (4) Mixed hyperlipidemia: Code(s): E78.2 - Mixed hyperlipidemia Status: Acute Assessment and Plan: mixed hypertrophy lipidemia with severe hypertriglyceridemia. Patient admits to a poor diet. Reviewed heart healthy diet, recommended Mediterranean, vegetarian, vegan diet as the most heart healthy. Cont atorvastatin 40 mg daily. (5) Substance abuse: Code(s): F19.10 - Other psychoactive substance abuse, uncomplicated Status: Acute Assessment and Plan: Drug screen positive for both amphetamines and marijuana. Discussed extensively with patient; both have been associated with heart disease and strongly encouraged complete cessation. (6) Multiple sclerosis: Code(s): G35 - Multiple sclerosis Status: Acute Assessment and Plan: Chronic fatigue and disability secondary to multiple sclerosis. (7) Adrenal adenoma: Code(s): D35.00 - Benign neoplasm of unspecified adrenal gland Status: Acute Assessment and Plan: Incidental finding on CT scan. FU w/ PMD ++++++++++++++++++++++++++++++++++++++++++++++++++++++++++++++++++++++++++++++ Subjective Date/time seen: 04/14/22 08:28 Follow-up for STEMI.? Admitted 04/12/2022 from [place] with chest pain, inferior ST elevation in troponin 2.3.? Taken emergently to the cardiac cath lab manager by Dr. Cosme,? found to have tight lesions in the ramus and the larger branch of the OM1 which were stented with drug-eluting stents, and a? totally occluded small/tiny branch of the OM 1 ? (Probably the culprit vessel) which was left to medical therapy due to its small size.? ? Normal left ventricular function, EF 70%. ? History of multiple sclerosis.? Drug screen positive for methamphetamine and marijuana.? 04/13/2022: ? Patient feeling better today, can breathe better, no chest pain.? Last use methamphetamine the day prior to admission.? States he was feeling exhausted and worn out from his multiple sclerosis , moving from bed to chair and back, and very discouraged. ? Hopeful that he will change his habits and lead a healthier life.? ? Has been working on smoking cessation off and on. Date of service 06/15/2022: Doing well, has been up in his room w/o problems. No CP, SOB, dizziness. Sleeping a lot. Desires to discuss his depression re: his MS and health issues. Having trouble w/o cigarettes, requesting a nicotine patch, was smoking 1/2 p
--- NOTE | 2022-04-14 10:02 | PM.DS ---
DS: Admitting Diagnosis Discharge Date 04/14/22 Admitting Diagnosis STEMI DS: Discharge Diagnosis Discharge Diagnosis (1) ST elevation [place] (STEMI): Code(s): I21.3 - ST elevation (STEMI) myocardial infarction of unspecified site Status: Acute (2) Substance abuse: Code(s): F19.10 - Other psychoactive substance abuse, uncomplicated Status: Acute DS: Summary Hospital Course Reason for hospitalization: STEMI Hospital Course: 41 years old M presented to an outside hospital on 04/12/2022 with complains of chest pain, urine drug screen was positive for cannabinoids and amphetamines, was found to have STEMI. Cardiology was consulted, underwent emergent cardiac catheterization. -status post? PTCA/PCI with FRANCIE x1 to large ramus intermedius and FRANCIE x1 to 2nd branch of the OM 1.? A small totally occluded 1st branch of OM 1 was not intervened upon as the thrill performer thought that the outcome of the patient will not change. Post cath stay was uneventful. Started on DAPT, statin, BB. Advised to quit smoking,discharged home in stable condition. Time spent discussing smoking cessation with patient: 3 to 10 minutes Status at Discharge Functional status at discharge: independent ambulation Overall status at discharge: patient is back to baseline Time Spent with Patient Time attestation: Total time spent providing and/or coordinating discharge services: Time spent: Greater than 30 minutes Exam Const: General: comfortable and no acute distress HENMT: Mouth: Yes moist mucous membranes Eyes: Sclera: sclerae normal Neck: Neck: supple Resp: Effort & Inspection: normal respiratory effort Cardio: Rate: regular rate Rhythm: regular rhythm GI: GI Palp: Yes Soft to palpation Auscultation: normal bowel sounds Skin: General skin exam: normal color Extrem: General: normal to inspection Psych: Mental Status: mental status grossly normal DS: Data Data Completed and Pending Labs on day of discharge: Labs from last 24 hours 04/14/22 04/14/22 03:41 03:41 WBC 14.9 H RBC 4.82 Hgb 14.0 Hct 40.6 L MCV 84.2 MCH 29.0 MCHC 34.5 RDW 13.1 Plt Count 240 MPV 10.0 Immature Gran % (Auto) 0.7 H Neut % (Auto) 72.5 Lymph % (Auto) 14.0 L Keith % (Auto) 11.4 H Eos % (Auto) 1.1 Baso % (Auto) 0.3 Lymph # (Auto) 2.08 Keith # (Auto) 1.7 H Eos # (Auto) 0.2 Baso # (Auto) 0.0 Abs Immat Gran (auto) 0.11 H Absolute Neuts (auto) 10.8 H Absolute Nucleated RBC 0.0 Nucleated RBC % 0.0 Sodium 140 Potassium 3.7 Chloride 108 H Carbon Dioxide 23 Anion Gap 9 BUN 9 Creatinine 0.90 Estim Creat Clear Calc 109 Estimated GFR > 60 Glucose 126 H Calcium 8.9 Phosphorus 4.6 H Magnesium 2.1 Discharge Plan Discharge Attending physician on discharge: Tracy Ordaz Consulting providers: Solitario Dowling Discharging Clinician: Tracy Ordaz Anticipated Discharge Date/Time: 04/14/22 09:58 Patient Disposition: Home, Self-Care Activity: may shower and other - see discharge instructions Diet: heart healthy Discharge Instructions: Follow-up: Appointment with nurse practitioner Cathryn Tellez on April 22 at 10:00 a.m.. Please arrive 15 minutes early for registration [facility] Cardiology: [phone]. Call if any questions. Address: [facility] [address] [address]. Our office is on the ground floor next to the gift shop of the doctor's office building. Enter through the main entrance for COVID screening. Follow up with your regular doctor, DR. Clark, in the next few weeks for general medical care, FU of CT scan, etc. After you heart attack: Activity: Take it easy for the next 2 weeks. Regular activity around the house is okay but no long walks or exercise. No lifting more than 15 lb for 2 weeks No sexual activity for 1 week. No driving for 1 week Medications: The aspirin and Brilinta a
[2022-04-14] MEDS: NICOTINE (*PBKC) 14 MG PATCH 1 PATCH TRANSDERM (10:16)
== END 2022-04-14 11:35 | disposition home or self-care (01) | DRG 247 ==
LOC: ANHIMU 18:23 → ANHICU 20:49
PROVIDERS: Internal Medicine; Internal Medicine Cardiovascular Disease; Physician Assistant; Admitting Provider Chiropractor; PCP Family Medicine; Visit Provider Internal Medicine
PROC: 4A023N7 Measurement of Cardiac Sampling and Pressure, Left Heart, Percutaneous Approach (ICD-10-PCS; CPT 93452; principal; 2022-04-12 20:30)
PROC: 027135Z Dilation of Coronary Artery, Two Arteries with Two Drug-eluting Intraluminal Devices, Percutaneous Approach (ICD-10-PCS; 2022-04-12 20:30)
PROC: 027034Z Dilation of Coronary Artery, One Artery with Drug-eluting Intraluminal Device, Percutaneous Approach (ICD-10-PCS; CPT 92928; 2022-04-12 20:30)
PROC: 027135Z Dilation of Coronary Artery, Two Arteries with Two Drug-eluting Intraluminal Devices, Percutaneous Approach (ICD-10-PCS; 2022-04-12 20:30)
DX: I21.3 ST elevation (STEMI) myocardial infarction of unspecified site (principal); I25.10 Atherosclerotic heart disease of native coronary artery without angina pectoris; R77.8 Other specified abnormalities of plasma proteins; G35 Multiple sclerosis; F19.10 Other psychoactive substance abuse, uncomplicated; F17.210 Nicotine dependence, cigarettes, uncomplicated; F41.9 Anxiety disorder, unspecified; G47.10 Hypersomnia, unspecified; E78.2 Mixed hyperlipidemia; R03.0 Elevated blood-pressure reading, without diagnosis of hypertension; D35.00 Benign neoplasm of unspecified adrenal gland; Z82.49 Family history of ischemic heart disease and other diseases of the circulatory system; Z79.899 Other long term (current) drug therapy
CPT/HCPCS: 36415; 80048; 80061; 83036; 83735; 84100; 84443; 84484; 85025; 85027; 85610; 85730; 93005; 93458; A9270; C1725; C1760; C1769; C1874; C1887; C1894; C9600; C9606; G0269; G0378; J0583; J1644; J2250; J2270; J2310; J3010; J7030; J7040

== ENCOUNTER 2022-09-04 07:31 | Outpatient (CLI) | payer OTHER, SELFPAY | END 2022-09-04 07:32 | disposition home or self-care (01) | LOC: CHSIMG 07:34 | PROVIDERS: PCP Family Medicine | DX: M54.16 Radiculopathy, lumbar region (principal) | CPT/HCPCS: 99199 ==

== ENCOUNTER 2023-05-12 17:10 | Emergency (ER) | payer OTHER, SELFPAY ==
--- NOTE | ~2023-05-12 | CT_ITS ---
EXAMINATION: CT abdomen pelvis wo con DATE: 05/12/2023 18:01 INDICATION: RIGHT FLANK PAIN X 10 HOURS/HX OF STONES TECHNIQUE: Computed tomography (CT) of the abdomen and pelvis was performed without intravenous contr ast. Automated exposure control and iterative reconstruction technique were employed. The dose-length product was 334.06 mGy-cm. COMPARISON: None. FINDINGS: Lower thorax: Coronary artery calcification. Liver: Normal. Biliary/Gallbladder: Gallbladder is normal. No bile duct dilation. Pancreas: No mass or duct dilation. Spleen: Normal. Adrenals:No mass. Kidneys: Multiple stones the left renal pelvis. No left hydronephrosis. Multiple additional nonobstru cting left renal calculi. Moderate right perinephric stranding and hydronephrosis. 8 mm calcification in the mid right ureter. Multiple additional nonobstructing right renal calculi. GI tract: No small or large bowel dilation. Normal appendix. Mesentery/Peritoneum: No ascites, mass, or free air. Retroperitoneum: No mass. Pelvis: 2 mm calcification projecting over the dependent urinary bladder may represent a recently pas sed stone. Soft Tissues: Soft tissues and body wall unremarkable. Bones: No acute osseous finding. IMPRESSION: 8 mm right mid ureteral stone causing moderate obstructive uropathy Reviewed, dictated and finalized at location K.
[2023-05-12 17:21] VITALS: BP 137/101; PULSE 104; RESP 22; TEMP 36.4; O2SAT 99
[2023-05-12] MEDS: KETOROLAC 30 MG/ML VIAL (*BKC) IV PUSH (17:44)
[2023-05-12] MEDS: SODIUM CHLORIDE 0.9% IV 1,000 ML 999 ML IV CONT (17:45)
[2023-05-12] MEDS: ONDANSETRON INJ 4 MG/2 ML VIAL IV PUSH (17:45)
[2023-05-12 17:54] LABS: Basophils Absolute Auto 0.05 K/mm3 (0.00-0.10); Basophils Percent Auto 0.4 % (0.0-1.0); Eosinophils Absolute Auto 0.14 K/mm3 (0.02-0.50); Eosinophils Percent Auto 1.1 % (1.0-6.0); Hematocrit 41.8 % (40.0-54.0); Hemoglobin 13.9 g/dL (14.0-18.0); Immature Granulocyte Absolute 0.07 K/mm3 (0.00-0.00); Immature Granulocyte Percent A 0.5 % (0.0-0.0); Lymphocytes Absolute Auto 1.49 K/mm3 (1.10-4.50); Lymphocytes Percent Auto 11.3 % (18.0-42.0); Mean Corpuscular HGB Conc 33.3 g/dL (32.0-36.0); Mean Corpuscular Hemoglobin 26.9 pg (27.0-31.0); Monocytes Absolute Auto 1.14 K/mm3 (0.10-0.90); Monocytes Percent Auto 8.7 % (2.0-11.0); Neutrophils Absolute Auto 10.2 K/mm3 (1.7-7.2); Platelet Count Result 323 K/mm3 (150-420); Red Blood Count 5.16 M/mm3 (4.70-6.10); Red Cell Distribution Width 14.8 % (11.6-14.4); White Blood Count 13.1 K/mm3 (4.8-10.8)
[2023-05-12 18:09] LABS: INR 0.9; Partial Thromboplastin Time 28.5 SEC (23.90-30.70); Prothrombin Time 10.4 Seconds (9.50-12.10)
[2023-05-12 18:10] LABS: Alanine Aminotransferase 52 U/L (16-63); Albumin Level 3.8 g/dL (3.4-5.0); Alkaline Phosphatase 168 U/L (46-116); Anion Gap 11 mmol/L (8-16); Aspartate Amino Transferase 21 U/L (15-37); Bilirubin,Total 0.5 mg/dL (0.00-1.00); Blood Urea Nitrogen 11 mg/dL (7-18); Carbon Dioxide 24 mmol/L (21-32); Chloride 104 mmol/L (98-108); Estimated CRCL calculation 90 ml/min; Estimated Glomerular Filt Rate > 60; Glucose 116 mg/dL (70-99); Osmolality Calculated 288 mOsm/kg (285-295); Potassium 4.2 mmol/L (3.5-5.1); Sodium 139 mmol/L (136-145); Total Protein 7.4 g/dL (6.4-8.2)
[2023-05-12 18:15] LABS: Lactic Acid Reflex 1.1 mmol/L (0.4-2.0)
--- NOTE | 2023-05-12 18:36 | ED.MALEGU ---
HPI - Male Genitourinary General Chief complaint: Abdominal Pain Stated complaint: right flank and right abdomen pain Time Seen by Provider: 05/12/23 17:20 Source: patient Mode of arrival: ambulatory Limitations: no limitations History of Present Illness HPI Narrative: This is a 42-year-old male who presents with some right flank and radiating into his right groin and lower abdomen patient has a history of kidney stones has a history of coronary artery disease. He is slightly nauseated with no chest pain no shortness of breath no dysuria no hematuria no fever chills. Patient has a referral to see a urologist and has been following with his primary care physician. Onset (ago): hour(s) Duration: intermittent Related Data Home Medications Medication Instructions Recorded Confirmed clonazepam 0.5 mg tablet 0.5 mg PO DIRECTED 04/12/22 04/12/22 escitalopram oxalate 20 mg tablet 20 mg PO DAILY 04/12/22 04/12/22 gabapentin 300 mg capsule 300 mg PO TID 04/12/22 04/12/22 gabapentin 600 mg tablet 600 mg PO TID 04/12/22 04/12/22 tizanidine 2 mg tablet 2 mg PO DAILY 04/12/22 04/12/22 Allergies Allergy/AdvReac Type Severity Reaction Status Date / Time No Known Allergies Allergy Verified 04/12/22 11:00 Review of Systems Review of Systems: All systems reviewed & are unremarkable except as noted in HPI and below PMFSH Past Medical History Medical History Anxiety Mixed hyperlipidemia Multiple sclerosis Nicotine use Substance abuse Surgical History Surgical History Status post excision of lipoma Family History Family History Mother Acute myocardial infarction, Onset Age: 42 Stents at age 42, bypass at age 52. Coronary artery disease Multiple sclerosis Social History Social History Social History: Surrogate medical decision maker: Rose Mary Vale, mother. Code status: Full code. Smoking packs per day: 0.25 Smoking cigarettes per day: 5.0 Smoking status: Current every day smoker Alcohol intake: never Substance use: current Substance use type: marijuana Living arrangements: with family Spiritual care concerns: No Exam Const: General: cooperative, healthy appearing, comfortable and no acute distress HENMT: Face and sinus: normal facial exam Mouth: Yes Normal oral and palatal mucosa present Eyes: General: appearance normal, both eyes and all related structures Chest: Chest palpation & inspection: normal inspection of the chest and normal palpation of entire chest wall Resp: Effort & Inspection: normal respiratory effort and able to speak in complete sentences Auscultation: clear to auscultation bilaterally Cardio: Jugular venous distension: no JVD Palpation: normal PMI Rate: regular rate Rhythm: regular rhythm GI: Inspection: normal to inspection GI Palp: Yes abdominal tenderness Auscultation: normal bowel sounds Other: Right flank pain with palpation and lower groin pain. : General: Yes CVA tenderness Back/Spine/Pelvis: Back: CVA tenderness Skin: General skin exam: normal color and no rashes or lesions noted Neuro: General: oriented to person, oriented to place and oriented to time Extrem: General: normal to inspection, full ROM and capillary refill normal Psych: Appearance: grossly normal Mental Status: mental status grossly normal Course Course Emergency Course: Patient had a CT scan which shows that there is an 8mm right mid ureter with mild obstructive uropathy, patient received IV Toradol and Zofran along with IV fluids. After reassessment patient's symptoms have markedly improved currently pain level is nearly resolved. Vital Signs Vital signs: Vital Signs Temperature 36.4 C 05/12/23 17:21 Pulse Rate 104 H
[2023-05-12 18:54] VITALS: BP 115/79; PULSE 75; RESP 20; TEMP 36.9; O2SAT 97
== END 2023-05-12 19:00 | disposition home or self-care (01) ==
PROVIDERS: Emergency Provider Emergency Medicine; PCP Physician Assistant
DX: N13.2 Hydronephrosis with renal and ureteral calculous obstruction (principal); I25.10 Atherosclerotic heart disease of native coronary artery without angina pectoris; E78.2 Mixed hyperlipidemia; G35 Multiple sclerosis; F41.9 Anxiety disorder, unspecified; F17.210 Nicotine dependence, cigarettes, uncomplicated; Z79.01 Long term (current) use of anticoagulants; Z79.82 Long term (current) use of aspirin
CPT/HCPCS: 36415; 74176; 80053; 83605; 85025; 85610; 85730; 96361; 96374; 96375; 99284; J1885; J2405; J7030